=== PATIENT | female | born 1970 | race Caucasian/White ===

== ENCOUNTER 2016-06-01 20:03 | Emergency (ER) | payer OTHER ==
[2010-05-01 22:03] VITALS: BMI 35.5
[2016-06-01 21:15] LABS: APPEARANCE CLEAR (CLEAR); BILIRUBIN NEGATIVE (NEGATIVE); COLOR YELLOW (YELLOW); GLUCOSE NEGATIVE (NEGATIVE); KETONE NEGATIVE (NEGATIVE); LEUKOCYTE ESTERASE NEGATIVE (NEGATIVE); NITRITE NEGATIVE (NEGATIVE); PROTEIN NEGATIVE (NEGATIVE); UROBILINOGEN NORMAL (NORMAL)
[2016-06-01 22:20] LABS: BASOPHILS 0.4 % (0.0-2.0); HEMOGLOBIN 14.4 g/dL (12-16); IMMATURE GRANULOCYTES 0.1 % (0-5); LYMPHOCYTES 37.6 % (15-50); MCH 33.7 pg (26.0-34.0); MCHC 34.3 g/dL (31.0-37.0); MCV 98.4 fL (80.0-100.0); MEAN PLATELET VOLUME 11.2 fL (7.4-10.4); MONOCYTES 7.9 % (2-11); PLATELET COUNT 211 10x3/uL (130-400); RBC 4.27 10x6/uL (4.00-5.40); RDW 12.6 % (11.5-14.5); WBC 8.2 10x3/uL (4.8-10.8)
[2016-06-01 22:36] LABS: ALBUMIN 3.7 g/dL (3.4-5.0); ANION GAP 12.9 mmol/L (8-16); BILIRUBIN - TOTAL 0.33 mg/dL (0.2-1.3); CALCIUM 9.2 mg/dL (8.5-10.1); CARBON DIOXIDE 26.7 mmol/L (21.0-32.0); CREATININE - SERUM 0.9 mg/dL (0.6-1.3); POTASSIUM - SERUM 3.6 mmol/L (3.5-5.1); PROTEIN - SERUM 7.5 g/dL (6.4-8.2)
== END 2016-06-01 22:40 | disposition home or self-care (01) ==
LOC: D.ER 20:03
PROVIDERS: Family Medicine; Physician Assistant
DX: M54.5 Low back pain (principal); J20.9 Acute bronchitis, unspecified; J45.909 Unspecified asthma, uncomplicated

== ENCOUNTER 2016-06-05 15:32 | Emergency (ER) | payer OTHER ==
[2010-05-01 22:03] VITALS: BMI 35.5
== END 2016-06-05 18:05 | disposition home or self-care (01) ==
LOC: D.ER 15:32
DX: M54.5 Low back pain (principal); F17.200 Nicotine dependence, unspecified, uncomplicated

== ENCOUNTER 2017-10-27 16:14 | Emergency (ER) | payer OTHER ==
[~2017-10-27] VITALS: Ht 175.3 cm; Wt 99.1 kg
[2017-10-27 16:47] VITALS: Ht 175.3 cm; Wt 99.1 kg
[2017-10-27] MEDS ORDERED: VENTOLIN HFA18 GM INH (16:50)
[2017-10-27] MEDS ORDERED: VIBRAMYCIN 100100 MG PO (17:22)
[2017-10-27] MEDS ORDERED: VOLTAREN75 MG PO (17:22)
[2017-10-27 17:45] VITALS: BP 116/82
== END 2017-10-27 17:46 | disposition home or self-care (01) ==
LOC: D.ER 16:14
DX: L03.115 Cellulitis of right lower limb (principal); F17.200 Nicotine dependence, unspecified, uncomplicated

== ENCOUNTER 2018-05-08 07:50 | Day surgery (SDC) | payer MEDICAID ==
[2018-05-07 10:21] LABS: BASOPHILS 0.6 % (0-2); EOSINOPHILS 2.6 % (0-7); HEMATOCRIT 40.7 % (36.0-48.0); HEMOGLOBIN 14.2 g/dL (12-16); IMMATURE GRANULOCYTES 0.2 % (0-5); LYMPHOCYTES 33.1 % (15-50); MCH 33.4 pg (26.0-34.0); MCHC 34.9 g/dL (31.0-37.0); MCV 95.8 fL (80.0-100.0); MEAN PLATELET VOLUME 10.5 fL (7.4-10.4); MONOCYTES 5.9 % (2-11); NEUTROPHILS 57.6 % (40-80); PLATELET COUNT 248 10x3/uL (130-400); RBC 4.25 10x6/uL (4.00-5.40); RDW 12.8 % (11.5-14.5); WBC 8.5 10x3/uL (4.8-10.8)
[2018-05-07 10:25] LABS: ANION GAP 12.8 mmol/L (8-16); CALCIUM 9.1 mg/dL (8.5-10.1); CARBON DIOXIDE 27.8 mmol/L (21.0-32.0); CREATININE - SERUM 0.9 mg/dL (0.6-1.3); POTASSIUM - SERUM 4.6 mmol/L (3.5-5.1)
[~2018-05-08] VITALS: Ht 172.7 cm; Wt 106.6 kg
[~2018-05-08 07:50] MED LIST: SINGULAIR10 MG PO; VENTOLIN HFA18 GM INH; VIBRAMYCIN 100100 MG PO; VOLTAREN75 MG PO
[2018-05-08] MEDS ORDERED: PULMICORT0.25 MG/1 INH (09:16)
[2018-05-08 09:17] VITALS: BP 115/65; Ht 172.7 cm; Wt 106.6 kg
[2018-05-08] MEDS ORDERED: DILAUDID2 MG PO (11:49)
--- NOTE | 2018-06-05 09:41 | OP ---
PATIENT NAME: KJ FARR MEDICAL RECORD: [id number] :70 LOCATION:IVAN ADMISSION DATE: SURGEON: HARI CUEVAS MD DATE OF OPERATION: 05/08/2018 PREOPERATIVE DIAGNOSES: 1. Ventral incisional hernia. 2. Asthma. 3. Tobacco dependence syndrome. POSTOPERATIVE DIAGNOSES: 1. Ventral incisional hernia. 2. Asthma. 3. Tobacco dependence syndrome. PROCEDURE: Ventral hernia repair without mesh. SURGEON: Hari Cuevas MD REPORT OF PROCEDURE: The patient's abdomen was prepped and draped in sterile fashion. There was a previous incision in the epigastric region from a 12-mm trocar site. This was transverse and this was reopened using a 15 blade and electrocautery. As we dissected through the subcutaneous tissues down to the fascia, I never encountered mass or hernia defect. I elevated the fatty tissue off the fascia as far as I could and never found a fascial defect or any sign of a lipoma. At this point, we irrigated out the wound. There was a bleeding arterial vessel at the base, which was treated with electrocautery and throughout the conclusion of the case there was no sign of any further bleeding. The subcutaneous tissues were reapproximated with interrupted 3-0 Vicryl and the skin was closed with running subcutaneous 5-0 Monocryl. A 10 mL of 0.25% Marcaine with epinephrine was infused into the surrounding tissues on this wound. We felt around on the abdominal wall some more and felt a small mass in the midline just below this. A longitudinal incision was made overlying this mass and electrocautery was used to dissect down through to the tissue. Once we did, we did encounter a mass which when completely dissected free, ended up being fat-containing incarcerated ventral hernia. Multiple attempts were made to free up the hernia sac and reduce the hernia contents, but they would never go back in. I eventually just eviscerated the fatty tissue and was able to push the remainder back into the wound. The wound was approximately 1 cm wide and less than 0.5 cm in length. We freed up the fascia and reapproximated the fascial defect transversely using interrupted 0 Prolenes times 3. The wound was then irrigated out thoroughly with normal saline. The subcutaneous tissues were reapproximated with interrupted 3-0 Vicryl and the skin was closed with running subcutaneous 5-0 Monocryl. A 10 mL of 0.25% Marcaine with epinephrine were infused into the surrounding tissues. The wounds were dressed appropriately. COMPLICATIONS: None. CONDITION: Stable. ANESTHESIA: General endotracheal and local. BLOOD LOSS: 30 mL. TRANSINT:[id number] Voice Confirmation ID: [id number] DOCUMENT ID: [id number] OPERATIVE REPORT [id number] KJ FARR, HARI BELTRAN at 0941 CC: THI GUTIERREZ [id number] DICTATION DATE: 05/08/18 1157 [facility] PRESSER: 05/08/18 1212 [facility] 05/08/18 [facility] [address] [place] [address]
== END 2018-05-08 17:10 | disposition home or self-care (01) ==
LOC: D.OPS 07:50 → D.PAN 12:15 → D.OPS 12:15
PROVIDERS: Surgery
DX: K43.2 Incisional hernia without obstruction or gangrene (principal); J45.909 Unspecified asthma, uncomplicated; F17.210 Nicotine dependence, cigarettes, uncomplicated; Z01.812 Encounter for preprocedural laboratory examination

== ENCOUNTER 2018-05-18 15:50 | Emergency (ER) | payer MEDICAID ==
[~2018-05-18] VITALS: Ht 172.7 cm; Wt 106.8 kg
[~2018-05-18 15:50] MED LIST changes: +DILAUDID2 MG PO; +PULMICORT0.25 MG/1 INH
[2018-05-18 15:52] VITALS: Ht 172.7 cm; Wt 106.8 kg
[2018-05-18 16:30] LABS: BASOPHILS 0.4 % (0-2); HEMATOCRIT 39.7 % (36.0-48.0); HEMOGLOBIN 13.9 g/dL (12-16); IMMATURE GRANULOCYTES 0.3 % (0-5); LYMPHOCYTES 30.2 % (15-50); MCH 33.6 pg (26.0-34.0); MCV 95.9 fL (80.0-100.0); NEUTROPHILS 61.1 % (40-80); PLATELET COUNT 218 10x3/uL (130-400); RBC 4.14 10x6/uL (4.00-5.40); WBC 9.7 10x3/uL (4.8-10.8)
[2018-05-18 16:58] LABS: ALBUMIN 3.4 g/dL (3.4-5.0); ANION GAP 16.2 mmol/L (8-16); BILIRUBIN - TOTAL 0.25 mg/dL (0.2-1.3); CALCIUM 8.9 mg/dL (8.5-10.1); CARBON DIOXIDE 22.7 mmol/L (21.0-32.0); CREATININE - SERUM 0.9 mg/dL (0.6-1.3); POTASSIUM - SERUM 3.9 mmol/L (3.5-5.1); PROTEIN - SERUM 7.4 g/dL (6.4-8.2)
[2018-05-18 17:19] LABS: APPEARANCE CLEAR (CLEAR); BILIRUBIN NEGATIVE (NEGATIVE); COLOR STRAW (YELLOW); GLUCOSE NEGATIVE (NEGATIVE); KETONE NEGATIVE (NEGATIVE); NITRITE NEGATIVE (NEGATIVE); PROTEIN NEGATIVE (NEGATIVE); UROBILINOGEN NORMAL (NORMAL)
[2018-05-18] MEDS ORDERED: ULTRAM50 MG PO (19:24)
[2018-05-18 19:44] VITALS: BP 138/87
--- NOTE | 2018-05-28 11:00 | CN ---
PATIENT NAME:KJ MEDEIROS MEDICAL RECORD: [id number] : 70 LOCATION:D.ER ADMIT DATE: ACCOUNT: [id number] CONSULTING PHYSICIAN: MICHELLE TREVIÑO MD REFERRING PHYSICIAN: PATRICA CUMMINGS MD DATE OF CONSULTATION: 05/18/2018 HISTORY OF PRESENT ILLNESS: I was contacted by the Emergency Room staff and asked to come see Ms. Medeiros. She recently underwent an open hernia repair by Dr. Bond. She states that mesh was not placed. In reading Dr. Bond's operative note, this was a ventral incisional hernia. It appears that this was at a trocar site. The patient has 2 subcutaneous fluid collections. She has had no fever. There is no overlying erythema. There has been no drainage. There is no evidence of a recurrent hernia. The patient states she is having a lot of pain. The entire examination was performed in the presence of a female nurse. I have told the patient that we have several options. I believe these likely represent seromas. One option would be watchful waiting. IMPRESSION: My impression is that the patient's pain threshold will not tolerate watchful waiting. One would be to open up the incisions and drain the seromas, another would be to open up the incision, drain the seromas and packed the wounds, and another would be to percutaneously aspirate the seromas. I think that the best option for her is going to be percutaneous drainage of the seromas and that this might be done nicely by the interventional radiology team. I will have Dr. Bond's nurse contact the patient in the morning and I will ask that Dr. Bond review the CT images and determine what course of therapy he would prescribe for this patient. TRANSINT:[id number] Voice Confirmation ID: [id number] DOCUMENT ID: [id number] MICHELLE TREVIÑO MD at 1100 CC: [id number] DICTATION DATE: 05/18/181947 [employer] REPRESENTATIVE: 05/18/18 2325 [facility] ER 05/18/18 [facility] [address] [place] [address]
== END 2018-05-18 19:45 | disposition home or self-care (01) ==
LOC: D.ER 15:50
PROVIDERS: Family Medicine
DX: L76.82 Other postprocedural complications of skin and subcutaneous tissue (principal)

== ENCOUNTER 2018-09-07 14:26 | Emergency (ER) | payer MEDICAID ==
[~2018-09-07 14:26] MED LIST changes: +ULTRAM50 MG PO
[2018-09-07 14:30] VITALS: BMI 35.6
[2018-09-07 14:59] LABS: BASOPHILS 0.2 % (0-2); EOSINOPHILS 4.6 % (0-7); HEMATOCRIT 42.1 % (36.0-48.0); HEMOGLOBIN 15.1 g/dL (12-16); IMMATURE GRANULOCYTES 0.2 % (0-5); LYMPHOCYTES 23.6 % (15-50); MCH 33.9 pg (26.0-34.0); MCHC 35.9 g/dL (31.0-37.0); MCV 94.4 fL (80.0-100.0); MEAN PLATELET VOLUME 10.9 fL (7.4-10.4); MONOCYTES 7.1 % (2-11); NEUTROPHILS 64.3 % (40-80); PLATELET COUNT 217 10x3/uL (130-400); RBC 4.46 10x6/uL (4.00-5.40); RDW 12.8 % (11.5-14.5); WBC 9.8 10x3/uL (4.8-10.8)
[2018-09-07 15:14] LABS: ALKALINE PHOSPHATASE 98 U/L (46-116); ALT (SGPT) 41 U/L (10-68); BILIRUBIN - TOTAL 0.39 mg/dL (0.2-1.3); CALC OSMOLALITY 279 mosm/kg (275-300); CALCIUM 9.2 mg/dL (8.5-10.1); CARBON DIOXIDE 25.8 mmol/L (21.0-32.0); CHLORIDE - SERUM 105 mmol/L (98-107); CREATININE - SERUM 0.8 mg/dL (0.6-1.3); GLUCOSE 100 mg/dL (74-106); PROTEIN - SERUM 8.2 g/dL (6.4-8.2); SODIUM 141 mmol/L (136-145); UREA NITROGEN 11 mg/dL (7-18); eGFR NON AFRICAN AMERICAN 81 mL/min (90-120)
[2018-09-07 15:16] LABS: APTT 28.7 SECONDS (22.8-39.4); INR 0.96 (0.85-1.17); PROTIME 12.3 SECONDS (11.6-15.0)
[2018-09-07 15:26] LABS: CKMB 1.5 U/L (0.0-3.6); CREATINE KINASE 106 UL (21-215); PRO BNP 22 pg/mL (0-125)
[2018-09-07 15:27] LABS: TROPONIN-I < 0.017 ng/mL (0.000-0.060)
[2018-09-07] MEDS ORDERED: ALBUTEROL SULF8.5 GM INH (15:31)
[2018-09-07] MEDS ORDERED: KEFLEX500 MG PO (15:31)
[2018-09-07 16:15] VITALS: BP 121/68
== END 2018-09-07 16:15 | disposition home or self-care (01) ==
LOC: D.ER 14:26
PROVIDERS: Emergency Medicine
DX: J45.901 Unspecified asthma with (acute) exacerbation (principal); J44.9 Chronic obstructive pulmonary disease, unspecified

== ENCOUNTER → 2020-06-24 07:39 | Outpatient (CLI) | payer OTHER ==
[~2020-06-24 07:39] MED LIST changes: +ALBUTEROL SULF8.5 GM INH; +KEFLEX500 MG PO
== END | disposition home or self-care (01) ==
LOC: D.CT 07:39
PROVIDERS: ATTEND Nurse Practitioner
DX: J43.8 Other emphysema (principal); Z72.0 Tobacco use

== ENCOUNTER → 2020-08-22 12:33 | Outpatient (CLI) | payer OTHER ==
[~2020-08-22 12:33] MED LIST changes: +BAYER CHEWABLE81 MG PO; +BUPROPION XL300 MG PO; +FUROSEMIDE20 MG PO; +MOBIC7.5 MG PO; +TRAZODONE HCL50 MG PO; +TRELEGY ELLIPT1 EACH INH; +ZOLOFT50 MG PO; +ZYLOPRIM300 MG PO
== END | disposition home or self-care (01) ==
LOC: D.HCCARDIO 12:33
PROVIDERS: ATTEND Internal Medicine Cardiovascular Disease
DX: R07.9 Chest pain, unspecified (principal)

== ENCOUNTER 2020-08-24 11:30 | Day surgery (SDC) | payer OTHER ==
[~2020-08-24] VITALS: Ht 172.7 cm; Wt 129.5 kg
[~2020-08-24 11:30] MED LIST changes: -BAYER CHEWABLE81 MG PO; -BUPROPION XL300 MG PO; -FUROSEMIDE20 MG PO; -MOBIC7.5 MG PO; -TRAZODONE HCL50 MG PO; -TRELEGY ELLIPT1 EACH INH; -ZOLOFT50 MG PO; -ZYLOPRIM300 MG PO
[2020-08-24] MEDS ORDERED: FUROSEMIDE20 MG PO (11:38)
[2020-08-24] MEDS ORDERED: BUPROPION XL300 MG PO (11:39)
[2020-08-24] MEDS ORDERED: MOBIC7.5 MG PO (11:39)
[2020-08-24] MEDS ORDERED: TRELEGY ELLIPT1 EACH INH (11:40)
[2020-08-24] MEDS ORDERED: ZOLOFT50 MG PO (11:40)
[2020-08-24] MEDS ORDERED: ZYLOPRIM300 MG PO (11:40)
[2020-08-24] MEDS ORDERED: BAYER CHEWABLE81 MG PO (11:41)
[2020-08-24] MEDS ORDERED: TRAZODONE HCL50 MG PO (11:41)
[2020-08-24 11:50] VITALS: BP 124/65; Ht 172.7 cm; Wt 129.5 kg
[2020-08-24 12:06] LABS: BASOPHILS 0.5 % (0-2); EOSINOPHILS 0.1 % (0-7); HEMATOCRIT 37.7 % (36.0-48.0); HEMOGLOBIN 12.7 g/dL (12-16); LYMPHOCYTES 15.4 % (15-50); MCH 31.8 pg (26.0-34.0); MCHC 33.6 g/dL (31.0-37.0); MCV 94.7 fL (80.0-100.0); MEAN PLATELET VOLUME 8.5 fL (7.4-10.4); MONOCYTES 6.6 % (2-11); NEUTROPHILS 77.4 % (40-80); RBC 3.98 10x6/uL (4.00-5.40); RDW 14.8 % (11.5-14.5); WBC 12.9 10x3/uL (4.8-10.8)
[2020-08-24 12:20] LABS: ANION GAP 13.7 mmol/L (8-16); CALCIUM 9.3 mg/dL (8.5-10.1); CARBON DIOXIDE 27.1 mmol/L (21.0-32.0); CHOL - HDL RATIO 6.3 ratio (2.3-4.1); CREATININE - SERUM 0.9 mg/dL (0.6-1.3); LDL-HDL RATIO 4.6 ratio (1.5-3.5); POTASSIUM - SERUM 3.8 mmol/L (3.5-5.1)
[2020-08-24 13:00] LABS: PLATELET COUNT 303 10x3/uL (130-400)
--- NOTE | 2020-08-24 14:20 | NUR ---
PT ARRIVED BY STRETCHER. PLACED ON MONITORS. ASSESSMENT COMPLETED. VSS AT THIS TIME. CALL LIGHT WITHIN REACH. FAMILY AT BEDSIDE. PT RESTING COMFORTABLY.
--- NOTE | 2020-08-24 14:35 | NUR ---
PT RESTING COMFORTABLY. VSS AT THIS TIME. CALL LIGHT WITHIN REACH. DENIES NAUSEA/PAIN.
--- NOTE | 2020-08-24 15:05 | NUR ---
RIGHT WRIST Z BAND IN PLACE. NO BLEEDING/HEMATOMA NOTED. CALL LIGHT WITHIN REACH. VSS. PT TOLERATING SIPS OF WATER. DENIES NAUSEA/PAIN.
--- NOTE | 2020-08-24 15:30 | NUR ---
PT AWAKE AND ALERT. 2cc OF AIR REMOVED FROM Z BAND. NO BLEEDING/HEMATOMA NOTED. PT DENIES NAUSEA/PAIN. SET UP WITH SANDWICHT AND DRINK. VSS.
--- NOTE | 2020-08-24 15:45 | NUR ---
3cc OF AIR REMOVED FROM Z BAND. NO BLEEDING/HEMATOMA NOTED. VSS AT THIS TIME. PT RESTING COMFORTABLY. NO NEEDS AT THIS TIME.
--- NOTE | 2020-08-24 16:00 | NUR ---
4cc OF AIR REMOVED FROM Z BAND. NO BLEEDING/HEMATOMA NOTED. VSS. CALL LIGHT WITHIN REACH.
--- NOTE | 2020-08-24 16:15 | NUR ---
REMOVED Z BAND AND DRESSING APPLIED. RIGHT WRIST BRACE IN PLACE. NO BLEEDING/HEMATOMA NOTED. PIV D/C'D WITH CATH TIP INTACT. TOLERATED WELL. DISCUSSED DISCHARGE INSTRUCTIONS WITH PT AND PT'S FAMILY. THEY VOICED UNDERSTANDING. PT INSTRUCTED TO GET UP AND DRESSED AT THIS TIME. FAMILY AT BEDSIDE TO ASSIST. CALL LIGHT LEFT WITHIN REACH.
--- NOTE | 2020-08-24 16:23 | NUR ---
PT AMBULATED TO RESTROOM. VOIDED WITHOUT DIFFICUTLY. STEADY GAIT NOTED.
--- NOTE | 2020-08-24 16:30 | NUR ---
RIGHT WRIST DRESSING C/D/I. NO S/S OF HEMATOMA NOTED. PT TAKEN OUT TO VEHICLE BY WHEELCHAIR. NO S/S OF DISTRESS NOTED. ALL BELONGINGS AND PAPERWORK IN HAND.
== END 2020-08-24 16:30 | disposition home or self-care (01) ==
LOC: D.CATH 11:30
PROVIDERS: ATTEND Internal Medicine Cardiovascular Disease
DX: R94.39 Abnormal result of other cardiovascular function study (principal); I25.118 Atherosclerotic heart disease of native coronary artery with other forms of angina pectoris; E78.5 Hyperlipidemia, unspecified